=== PATIENT | male | born 1945 | race Hispanic/Latino ===

== ENCOUNTER 2021-12-28 11:03 | Outpatient (CLI) | payer MEDICARE | END 2021-12-28 11:04 | disposition home or self-care (01) | LOC: LABBT 11:03 | PROVIDERS: ATTEND Neurological Surgery | DX: Z01.810 Encounter for preprocedural cardiovascular examination (principal); M47.812 Spondylosis without myelopathy or radiculopathy, cervical region | CPT/HCPCS: 93005; 93010 ==

== ENCOUNTER 2022-03-27 12:21 | Outpatient (CLI) | payer MEDICARE | END 2022-03-27 12:22 | disposition home or self-care (01) | LOC: TBSIIMAG 12:21 | PROVIDERS: ATTEND Neurological Surgery | DX: M47.26 Other spondylosis with radiculopathy, lumbar region (principal); M48.061 Spinal stenosis, lumbar region without neurogenic claudication; M47.815 Spondylosis without myelopathy or radiculopathy, thoracolumbar region; M47.817 Spondylosis without myelopathy or radiculopathy, lumbosacral region; N28.9 Disorder of kidney and ureter, unspecified | CPT/HCPCS: 72148 ==

== ENCOUNTER 2022-05-15 13:58 | Outpatient (CLI) | payer MEDICARE ==
[2022-05-15 14:58] LABS: Anion Gap 12 mmol/L (10-20); BUN (Urea Nitrogen) 8 mg/dL (8.4-25.7); Calc. Creatinine Clearance 0 mL/min (70-130); Calcium 9.5 mg/dL (7.8-10.44); Carbon Dioxide 26 mmol/L (23-31); Chloride 105 mmol/L (98-107); Estimated GFR 96; Glucose 105 mg/dL (83-110); Potassium 3.8 mmol/L (3.5-5.1); Sodium 139 mmol/L (136-145)
== END 2022-05-15 13:59 | disposition home or self-care (01) ==
LOC: LABBT 13:58
PROVIDERS: ATTEND Neurological Surgery
DX: Z01.812 Encounter for preprocedural laboratory examination (principal); M54.16 Radiculopathy, lumbar region
CPT/HCPCS: 80048

== ENCOUNTER 2022-05-20 05:45 | Day surgery (SDC) | payer MEDICARE ==
[2022-05-17 11:09] VITALS: BMI 27.6
[2022-05-20] MEDS ORDERED: Dexmedetomidine 200 MCG/2 ML VIAL ONE (05:58)
[2022-05-20] MEDS ORDERED: fentaNYL PF 100 MCG/2 ML SYRINGE ONE (05:58)
[2022-05-20] MEDS ORDERED: PHENYLEPHRINE-NS 100 MCG/ML 10 ML SYRINGE ONE (05:58)
[2022-05-20] MEDS ORDERED: HYDROmorphone 0.5 MG/0.5 ML SYRINGE ONE (05:58)
[2022-05-20] MEDS ORDERED: Thrombin 5000 UNITS/5 ML VIAL ONE (06:54)
[2022-05-20] MEDS ORDERED: Bupivacaine HCl 0.5%/Epinephrine 1:200,000/PF 30 ml Vial ONE (06:54)
[2022-05-20] MEDS ORDERED: CEFAZOLIN 2 GM VIAL ONE ×2 (07:02→10:41)
[2022-05-20] MEDS ORDERED: Sodium Chloride 0.9% 100 ML ONE ×2 (07:02→10:41)
[2022-05-20] MEDS ORDERED: FENTANYL 50 MCG/ML 1 ML VIAL ONE ×2 (08:56→09:07)
[2022-05-20] MEDS ORDERED: Tamsulosin HCl 0.4 MG CAP ONE (08:59)
[2022-05-20] MEDS ORDERED: Acetaminophen/Codeine 30-300mg Tablet ONE (09:45)
== END 2022-05-20 11:48 | disposition home or self-care (01) ==
LOC: SDC 05:45
PROVIDERS: ATTEND Neurological Surgery
PROC: 01NB0ZZ Release Lumbar Nerve, Open Approach (ICD-10-PCS; principal; 2022-05-20)
PROC: 01NR0ZZ Release Sacral Nerve, Open Approach (ICD-10-PCS; 2022-05-20)
DX: M51.16 Intervertebral disc disorders with radiculopathy, lumbar region (principal); M48.061 Spinal stenosis, lumbar region without neurogenic claudication; Z98.1 Arthrodesis status; Z79.899 Other long term (current) drug therapy
CPT/HCPCS: 63047; 63048; J3010; J1170; J3490